=== PATIENT | female | born 1955 | race African-American/Black ===

== ENCOUNTER 2019-04-27 20:37 | Inpatient (IN) | payer MEDICARE, MEDICAID ==
[~2019-04-27] VITALS: Ht 170.2 cm; Wt 106.6 kg
[2019-04-27 23:23] LABS: BASOPHILS % 0.9 % (0.0-2.0); EOSINOPHILS % 1.4 % (0.0-5.0); HEMATOCRIT. 33.5 % (36.0-48.0); HEMOGLOBIN. 10.8 g/dL (12.0-16.0); LYMPHOCYTES % 19.6 % (20.0-50.0); MEAN CORPUSCULAR HEMOGLOBIN 24.4 pg (28.0-32.0); MEAN CORPUSCULAR VOLUME 75.5 fL (81.0-99.0); MEAN PLATELET VOLUME 7.7 fl (7.4-10.4); MONOCYTES % 7.6 % (2.0-8.0); NEUTROPHILS % 70.5 % (40.0-76.0); PLATELET 200 x1000/uL (130-400); RED BLOOD CELL COUNT 4.43 mill/uL (4.2-5.4); RED CELL DISTRIBUTION WIDTH 13.2 % (11.6-14.6)
[2019-04-27 23:31] LABS: CHLORIDE 98 mEq/L (98-107)
[2019-04-28 03:30] VITALS: BP 104/46
[2019-04-28] MEDS ORDERED: TIZA4CAP PO (03:57)
[2019-04-28] MEDS ORDERED: COR6 PO (03:57)
[2019-04-28] MEDS ORDERED: LANTUSUD SUBCUT (03:57)
[2019-04-28] MEDS ORDERED: METO5TAB69 PO (03:57)
[2019-04-28] MEDS ORDERED: FEBU80TA PO (03:57)
[2019-04-28] MEDS ORDERED: GLIP10TA10 PO (03:57)
[2019-04-28] MEDS ORDERED: FURO80TA3 PO (03:57)
[2019-04-28] MEDS ORDERED: TIZANIDINE HCL 2MG TABLET PO PRN (04:45)
[2019-04-28] MEDS ORDERED: DEXTROSE 50% WATER 50ML SYRINGE IV PRN (04:45)
[2019-04-28] MEDS: BLOOD SUGAR DIAGNOSTIC STRIP TEST SCH ×4 (06:03→21:14)
[2019-04-28 08:00] VITALS: BP 97/53
[2019-04-28] MEDS: CARVEDILOL 6.25 MG TABLET PO SCH ×2 (08:37→21:00)
[2019-04-28] MEDS: METOLAZONE 5MG TABLET PO SCH ×2 (08:44→16:28)
[2019-04-28] MEDS: ENOXAPARIN 30MG/0.3ML SYR SUBCUT SCH ×2 (08:45→21:00)
[2019-04-28] MEDS: GLIPIZIDE 10MG TABLET PO SCH ×2 (08:56→17:57)
[2019-04-28] MEDS: FUROSEMIDE 40MG TABLET PO SCH (09:00)
[2019-04-28] MEDS: INSULIN LISPRO 100 UNITS/ML SUBCUT SCH ×4 (09:00→21:00)
[2019-04-28] MEDS ORDERED: FEBUXOSTAT 80 MG PO SCH (09:00)
[2019-04-28 10:18] LABS: BASOPHILS % 0.6 % (0.0-2.0); EOSINOPHILS % 1.6 % (0.0-5.0); HEMATOCRIT. 30.7 % (36.0-48.0); HEMOGLOBIN. 9.8 g/dL (12.0-16.0); LYMPHOCYTES % 26.5 % (20.0-50.0); MEAN CORPUSCULAR HEMOGLOBIN 24.1 pg (28.0-32.0); MEAN CORPUSCULAR VOLUME 75.5 fL (81.0-99.0); MEAN PLATELET VOLUME 8.1 fl (7.4-10.4); MONOCYTES % 10.9 % (2.0-8.0); NEUTROPHILS % 60.4 % (40.0-76.0); PLATELET 195 x1000/uL (130-400); RED BLOOD CELL COUNT 4.07 mill/uL (4.2-5.4)
[2019-04-28 12:00] VITALS: BP 92/45
[2019-04-28 16:00] VITALS: BP 104/57
[2019-04-28 16:17] LABS: *AMPHETAMINES SCREEN URINE NEGATIVE (NEGATIVE); *BARBITURATES SCREEN URINE NEGATIVE (NEGATIVE); *BENZODIAZEPINES SCREEN URINE NEGATIVE (NEGATIVE); *COCAINE SCREEN URINE NEGATIVE (NEGATIVE); CANNABINOID URINE SCREEN NEGATIVE (NEGATIVE); METHADONE URINE SCREEN NEGATIVE (NEGATIVE); OPIATES URINE SCREEN NEGATIVE (NEGATIVE); PHENCYCLIDINE URINE SCREEN NEGATIVE (NEGATIVE)
[2019-04-28 20:00] VITALS: BP 101/55
[2019-04-28] MEDS ORDERED: INSULIN GLARGINE UD 100 UNITS/ML SYR SUBCUT SCH ×2 (22:00)
[2019-04-29] VITALS: BP 110/60
[2019-04-29 04:00] VITALS: BP 126/66
[2019-04-29] MEDS: BLOOD SUGAR DIAGNOSTIC STRIP TEST SCH ×2 (06:32→12:58)
[2019-04-29 08:00] VITALS: BP 120/68
[2019-04-29] MEDS: FUROSEMIDE 40MG TABLET PO SCH (09:51)
[2019-04-29] MEDS: ENOXAPARIN 30MG/0.3ML SYR SUBCUT SCH (09:51)
[2019-04-29] MEDS: CARVEDILOL 6.25 MG TABLET PO SCH (09:52)
[2019-04-29] MEDS: GLIPIZIDE 10MG TABLET PO SCH (09:52)
[2019-04-29] MEDS: METOLAZONE 5MG TABLET PO SCH (09:52)
[2019-04-29] MEDS: INSULIN LISPRO 100 UNITS/ML SUBCUT SCH ×2 (10:14→13:16)
[2019-04-29] MEDS ORDERED: PIOGLITAZONE 15MG TABLET PO SCH (11:45)
[2019-04-29] MEDS ORDERED: TIZANIDINE HCL 2MG TABLET PO PRN (11:45)
[2019-04-29 12:00] VITALS: BP 105/68
[2019-04-29] MEDS ORDERED: SACUBITRIL/VALSARTAN 24/26 TAB PO SCH (13:00)
[2019-04-29 15:22] VITALS: BP 114/68
== END 2019-04-29 15:50 | disposition home or self-care (01) | DRG 309 ==
LOC: ER 20:37 → 7WST 04-28 00:52 → EDBEDREQ 04-28 00:54 → EDBEDREQTM 04-28 00:54 → ENRESERV 04-28 02:23
PROVIDERS: ADMIT Family Medicine; ATTEND Family Medicine
DX: T82.190A Other mechanical complication of cardiac electrode, initial encounter (principal); I42.0 Dilated cardiomyopathy; I50.22 Chronic systolic (congestive) heart failure; N17.9 Acute kidney failure, unspecified; R57.9 Shock, unspecified; Y83.8 Other surgical procedures as the cause of abnormal reaction of the patient, or of later complication, without mention of misadventure at the time of the procedure; J45.909 Unspecified asthma, uncomplicated; I25.10 Atherosclerotic heart disease of native coronary artery without angina pectoris; I11.0 Hypertensive heart disease with heart failure; D50.9 Iron deficiency anemia, unspecified; E66.9 Obesity, unspecified; T50.2X5A Adverse effect of carbonic-anhydrase inhibitors, benzothiadiazides and other diuretics, initial encounter; E09.65 Drug or chemical induced diabetes mellitus with hyperglycemia; T38.0X5A Adverse effect of glucocorticoids and synthetic analogues, initial encounter; Z80.0 Family history of malignant neoplasm of digestive organs; Z79.899 Other long term (current) drug therapy; Z79.4 Long term (current) use of insulin; Z91.030 Bee allergy status; Z91.040 Latex allergy status; Y92.89 Other specified places as the place of occurrence of the external cause; Z88.6 Allergy status to analgesic agent; Z90.89 Acquired absence of other organs; Z91.012 Allergy to eggs; Z82.0 Family history of epilepsy and other diseases of the nervous system; Z84.1 Family history of disorders of kidney and ureter; Z80.3 Family history of malignant neoplasm of breast; Z68.36 Body mass index [BMI] 36.0-36.9, adult
CPT/HCPCS: 36415; 71045; 80048; 80305; 82962; 83880; 84484; 93005; 93306; 99285; J1650; J1815